=== PATIENT | female | born 1965 | race Caucasian/White ===

== ENCOUNTER 2017-09-11 15:29 | Outpatient (CLI) | payer OTHER | END 2017-09-11 15:30 | disposition home or self-care (01) | LOC: BICMAMMO 15:29 | PROVIDERS: ATTEND Internal Medicine | DX: R92.8 Other abnormal and inconclusive findings on diagnostic imaging of breast (principal) | CPT/HCPCS: 77066; G0279 ==

== ENCOUNTER 2017-12-29 12:45 | Emergency (ER) | payer OTHER ==
[~2017-12-29 12:45] MED LIST: ISOVUE-370 76%-LOCM 1 ML ONE
[2017-12-29 15:22] LABS: #Eosinphils 0.1 thou/uL (0.0-0.7); #Lymphocytes 2.1 thou/uL (1.20-3.40); #Monocytes 0.3 thou/uL (0.11-0.59); #Neutrophils 2.8 thou/uL (1.40-6.50); %Basophils 0.9 % (0.0-1.0); %Eosinophils 1.9 % (0.0-10.0); %Lymphocytes 38.7 % (21.0-51.0); %Neutrophils 52.6 % (42.0-75.0); Mean Corpuscular HGB CONC 30.7 g/dL (32.0-36.0); Mean Corpuscular Hemoglobin 20.4 pg (27.0-31.0); Mean Corpuscular Volume 66.6 fl (81.0-99.0); Mean Platelet Volume 7.9 fL (7.4-10.4); Platelet Count 534 thou/uL (130-400); RBC Distribution Width 16.9 % (11.5-14.5); Red Blood Cell (RBC) Count 4.89 mill/uL (4.20-5.40); White Blood Cell (WBC) Count 5.4 thou/uL (4.8-10.8)
[2017-12-29 15:37] LABS: ALT (SGPT) 51 U/L (8-55); AST (SGOT) 40 U/L (5-34); Albumin 4.2 g/dL (3.5-5.0); Alkaline Phosphatase 293 U/L (40-150); Anion Gap 11 mmol/L (10-20); BUN (Urea Nitrogen) 15 mg/dL (9.8-20.1); Bilirubin, Total 0.3 mg/dL (0.2-1.2); Calc. Creatinine Clearance 0 mL/min (70-130); Calcium 9.1 mg/dL (7.8-10.44); Carbon Dioxide 25 mmol/L (22-29); Chloride 105 mmol/L (98-107); Estimated GFR-MDRD Greater than 90; Glucose 96 mg/dL (70-105); Potassium 3.4 mmol/L (3.5-5.1); Protein, Total 8.2 g/dL (6.0-8.3); Sodium 138 mmol/L (136-145)
[2017-12-29 15:41] LABS: Anisocytosis SLIGHT = 6-15 cells (100X) (0-5/hpf); Hypochromia SLIGHT = 6-15 cells (100X) (0-5/hpf); MDiff Complete? YES; Ovalocytes SLIGHT = 2-5 cells (100X) (0-1/hpf); PLT Morphology Comment Appears Increased; Polychromasia SLIGHT = 2-3 cells (100X) (0-2/hpf); Target Cells SLIGHT = 2-5 cells (100X) (0-1/hpf)
[2017-12-29] MEDS ORDERED: Ondansetron ODT 4 MG TAB ONE (16:07)
[2017-12-29 17:00] LABS: Bilirubin Small (Negative); Blood, Urine Negative (Negative); Clarity CLOUDY (Clear); Glucose, Urine (Dipstick) Negative (Negative); Leukocyte Negative (Negative); Nitrite Negative (Negative); Protein, Urine (Dipstick) 30 mg/dL (Neg-Trace)
[2017-12-29 17:01] LABS: Bacteria/HPF None Seen HPF (None Seen); Pathc Cast-AUWi Flag 1.45 (0-2.49); RBC/HPF 0-3 HPF (0-3)
[2017-12-29 17:10] LABS: Hyaline Casts/LPF 0-3 HYALINE CAST LPF (0-3 Hyaline)
--- NOTE | 2017-12-29 20:24 | CT ---
CT ABDOMEN AND PELVIS: 12/29/2017 HISTORY: Nausea, vomiting, diarrhea, and pain. COMPARISON: None. TECHNIQUE: Serial axial CT imaging at 5 mm intervals, from the lung bases through the pubic symphysis, with IV c ontrast. Coronal reformatted imaging obtained. FINDINGS: The imaged lung bases demonstrate mild linear density, suggesting volume loss. No free intraperitone al air or fluid is seen. The liver, gallbladder, spleen, pancreas, adrenal glands, and kidneys are unremarkable. The uterus is lobulated, particularly the region of the uterine fundus, suggesting a fibroid uterus. There is diverticulosis of the sigmoid colon, with no evidence for diverticulitis. The appendix appears unremarkable. There is no evidence for large or small bowel obstruction. There is mild scattered atherosclerotic calcification of the abdominal aorta. No adenopathy is noted within the abdomen or pelvis. There is a small, fat-containing umbilical grace ia. Osseous structures demonstrate no acute findings. IMPRESSION: Fibroid uterus. No free intraperitoneal air, evidence of focal bowel inflammatory change, or evidenc e of bowel obstruction. POS: THOMAS
== END 2017-12-29 20:53 | disposition home or self-care (01) ==
LOC: ERS 12:45
DX: R11.2 Nausea with vomiting, unspecified (principal); R19.7 Diarrhea, unspecified; D64.9 Anemia, unspecified; J45.909 Unspecified asthma, uncomplicated; K21.9 Gastro-esophageal reflux disease without esophagitis; Z79.899 Other long term (current) drug therapy
CPT/HCPCS: 36415; 74177; 80053; 81003; 81015; 83690; 85025; 96360; 96361; Q0162

== ENCOUNTER 2018-02-26 06:44 | Outpatient (CLI) | payer OTHER | END 2018-02-26 06:45 | disposition home or self-care (01) | LOC: BICULT 06:44 | PROVIDERS: ATTEND Family Medicine | DX: R94.5 Abnormal results of liver function studies (principal); K82.4 Cholesterolosis of gallbladder | CPT/HCPCS: 76705 ==

== ENCOUNTER 2018-12-10 09:02 | Outpatient (CLI) | payer OTHER ==
--- NOTE | 2018-12-10 09:38 | MMO ---
Bilateral MAMMO Bilat Screen [facility]. CLINICAL HISTORY: Patient is 53 years old and is seen for screening. The patient has no family history of breast cancer. The patient has no personal history of cancer. The patient has a history of right Ultrasound Guided Core Biopsy in December, - benign. VIEWS: The views performed were: bilateral craniocaudal with tomosynthesis and bilateral mediolateral oblique with tomosynthesis. FILMS COMPARED: The present examination has been compared to prior imaging studies performed at [facility] on 07/27/2015, 12/27/2015, 08/09/2016 and 09/11/2017. MAMMOGRAM FINDINGS: The breasts are heterogeneously dense, which could obscure a lesion on mammography. Finding 1: There are stable benign appearing calcifications seen in the right breast. Finding 2: There is a biopsy clip seen in the right breast. There are no suspicious masses, suspicious calcifications, or new areas of architectural distortion. IMPRESSION: THERE IS NO MAMMOGRAPHIC EVIDENCE OF MALIGNANCY. A ROUTINE FOLLOW-UP MAMMOGRAM IN 1 YEAR IS RECOMMENDED. THE RESULTS OF THIS EXAM WERE SENT TO THE PATIENT. ACR BI-RADS Category 2 - Benign finding MAMMOGRAPHY NOTE: 1. A negative mammogram report should not delay a biopsy if a dominant of clinically suspicious mass is present. 2. Approximately 10% to 15% of breast cancers are not detected by mammography. 3. Adenosis and dense breasts may obscure an underlying neoplasm.
== END 2018-12-10 09:03 | disposition home or self-care (01) ==
LOC: BICMAMMO 09:02
PROVIDERS: ATTEND Internal Medicine
DX: Z12.31 Encounter for screening mammogram for malignant neoplasm of breast (principal)
CPT/HCPCS: 77063; 77067

== ENCOUNTER 2021-12-29 07:50 | Outpatient (CLI) | payer OTHER | END 2021-12-29 07:51 | disposition home or self-care (01) | LOC: BICULT 07:50 | PROVIDERS: ATTEND Nurse Practitioner Family | DX: R74.8 Abnormal levels of other serum enzymes (principal); K82.4 Cholesterolosis of gallbladder | CPT/HCPCS: 76705 ==

== ENCOUNTER 2022-09-22 12:45 | Inpatient (IN) | payer SELFPAY ==
[2022-09-22] MEDS ORDERED: Aspirin Chewable 81 MG TAB ONE (13:02)
[2022-09-22 13:27] LABS: #Basophils 0.1 thou/uL (0.0-0.2); #Eosinphils 0.1 thou/uL (0.0-0.7); #Lymphocytes 1.7 thou/uL (1.20-3.40); #Monocytes 0.4 thou/uL (0.11-0.59); #Neutrophils 3.3 thou/uL (1.40-6.50); %Basophils 1.2 % (0.0-1.0); %Eosinophils 2.5 % (0.0-10.0); %Lymphocytes 30.2 % (21.0-51.0); %Monocytes 6.7 % (0.0-10.0); %Neutrophils 59.4 % (42.0-75.0); Hemoglobin 13.5 g/dL (12.0-16.0); Mean Corpuscular HGB CONC 34.8 g/dL (32.0-36.0); Mean Corpuscular Hemoglobin 33.4 pg (27.0-31.0); Mean Corpuscular Volume 95.9 fl (78.0-98.0); Mean Platelet Volume 7.5 fL (7.4-10.4); Platelet Count 288 10x3/uL (130-400); Red Blood Cell (RBC) Count 4.04 mill/uL (4.20-5.40); White Blood Cell (WBC) Count 5.5 10x3/uL (4.8-10.8)
[2022-09-22 13:46] LABS: ALT (SGPT) 129 U/L (8-55); AST (SGOT) 97 U/L (5-34); Albumin 3.7 g/dL (3.5-5.0); Alkaline Phosphatase 503 U/L (40-110); Anion Gap 13 mmol/L (10-20); BUN (Urea Nitrogen) 15 mg/dL (9.8-20.1); Bilirubin, Total 0.3 mg/dL (0.2-1.2); Calc. Creatinine Clearance 0 mL/min (70-130); Calcium 8.6 mg/dL (7.8-10.44); Carbon Dioxide 22 mmol/L (22-29); Chloride 107 mmol/L (98-107); Estimated GFR 99; Globulin 3.8 g/dL (2.4-3.5); Glucose 105 mg/dL (70-105); Lipase 52 U/L (8-78); Potassium 3.7 mmol/L (3.5-5.1); Protein, Total 7.5 g/dL (6.0-8.3); Sodium 138 mmol/L (136-145)
[2022-09-22] MEDS ORDERED: Nitroglycerin 0.4 MG TAB (25 Tab Bottle) SL PRN (14:36)
[2022-09-22 15:04] VITALS: BMI 35.4
[2022-09-22 17:01] LABS: Troponin I 0.011 ng/mL (< 0.028)
[2022-09-22 20:12] LABS: Troponin I Less than 0.010 ng/mL (< 0.028)
[2022-09-23 05:44] LABS: #Basophils 0.1 thou/uL (0.0-0.2); #Eosinphils 0.1 thou/uL (0.0-0.7); #Lymphocytes 1.8 thou/uL (1.20-3.40); #Monocytes 0.3 thou/uL (0.11-0.59); %Basophils 0.9 % (0.0-1.0); %Eosinophils 2.8 % (0.0-10.0); %Lymphocytes 33.6 % (21.0-51.0); %Monocytes 6.3 % (0.0-10.0); %Neutrophils 56.4 % (42.0-75.0); Hemoglobin 13.7 g/dL (12.0-16.0); Mean Corpuscular HGB CONC 33.8 g/dL (32.0-36.0); Mean Corpuscular Hemoglobin 32.4 pg (27.0-31.0); Mean Corpuscular Volume 95.9 fl (78.0-98.0); Mean Platelet Volume 7.5 fL (7.4-10.4); Platelet Count 266 10x3/uL (130-400); RBC Distribution Width 12.1 % (11.5-14.5); Red Blood Cell (RBC) Count 4.22 mill/uL (4.20-5.40); White Blood Cell (WBC) Count 5.4 10x3/uL (4.8-10.8)
[2022-09-23 06:01] LABS: Anion Gap 12 mmol/L (10-20); BUN (Urea Nitrogen) 14 mg/dL (9.8-20.1); Calc. Creatinine Clearance 147 mL/min (70-130); Calcium 8.7 mg/dL (7.8-10.44); Carbon Dioxide 23 mmol/L (22-29); Cardiac Risk 2.3 (Less than 4.5); Chloride 107 mmol/L (98-107); Cholesterol 168 mg/dl (< 200 Desired); Estimated GFR 107; Glucose 97 mg/dL (70-105); HDL Cholesterol 73 mg/dL (>60 Neg Risk); LDL Cholesterol, Calculated 76 mg/dL; Potassium 3.6 mmol/L (3.5-5.1); Sodium 138 mmol/L (136-145); Triglycerides 94 mg/dL (Less than 150)
[2022-09-23] MEDS ORDERED: ADENOSINE 60 MG/20 ML VIAL ONE (09:55)
[2022-09-23] MEDS: Lisinopril 10 MG TAB PO SCH (12:13)
[2022-09-23] MEDS: Aspirin Chewable 81 MG TAB PO SCH (12:13)
[2022-09-24] MEDS: Aspirin Chewable 81 MG TAB PO SCH (09:01)
[2022-09-24] MEDS: Lisinopril 10 MG TAB PO SCH (09:01)
[2022-09-25 01:24] LABS: Hemoglobin A1c 5.3 % (4.0-6.0)
[2022-09-25 05:37] LABS: #Eosinphils 0.1 thou/uL (0.0-0.7); #Lymphocytes 1.8 thou/uL (1.20-3.40); #Monocytes 0.4 thou/uL (0.11-0.59); #Neutrophils 3.8 thou/uL (1.40-6.50); %Basophils 0.7 % (0.0-1.0); %Monocytes 6.5 % (0.0-10.0); %Neutrophils 61.9 % (42.0-75.0); Hemoglobin 14.4 g/dL (12.0-16.0); Mean Corpuscular Hemoglobin 32.6 pg (27.0-31.0); Mean Corpuscular Volume 95.8 fl (78.0-98.0); Mean Platelet Volume 7.5 fL (7.4-10.4); Platelet Count 288 10x3/uL (130-400); RBC Distribution Width 12.1 % (11.5-14.5); White Blood Cell (WBC) Count 6.2 10x3/uL (4.8-10.8)
[2022-09-25 05:59] LABS: Anion Gap 13 mmol/L (10-20); BUN (Urea Nitrogen) 15 mg/dL (9.8-20.1); Calc. Creatinine Clearance 142 mL/min (70-130); Calcium 9.1 mg/dL (7.8-10.44); Carbon Dioxide 22 mmol/L (22-29); Chloride 105 mmol/L (98-107); Estimated GFR 106; Glucose 109 mg/dL (70-105); Potassium 3.8 mmol/L (3.5-5.1); Sodium 136 mmol/L (136-145)
[2022-09-25 08:49] VITALS: BP 109/58; TEMP 97.9
[2022-09-25] MEDS ORDERED: Atorvastatin Calcium 20 MG TAB PO SCH (09:00)
[2022-09-25] MEDS: Lisinopril 10 MG TAB PO SCH (09:08)
[2022-09-25] MEDS: Aspirin Chewable 81 MG TAB PO SCH (09:08)
== END 2022-09-25 11:20 | disposition home or self-care (01) | DRG 313 ==
LOC: ERS 12:45 → 2SW 14:21 → OBSVTOIN 09-24 09:31
PROVIDERS: ADMIT Family Medicine; ATTEND Family Medicine
DX: R07.89 Other chest pain (principal); Z20.822 Contact with and (suspected) exposure to COVID-19; E78.5 Hyperlipidemia, unspecified; K21.9 Gastro-esophageal reflux disease without esophagitis; I10 Essential (primary) hypertension; Z96.659 Presence of unspecified artificial knee joint; R20.0 Anesthesia of skin; M19.012 Primary osteoarthritis, left shoulder; K76.0 Fatty (change of) liver, not elsewhere classified; Z98.51 Tubal ligation status; Z79.899 Other long term (current) drug therapy
CPT/HCPCS: 36415; 70551; 71045; 72141; 76705; 78452; 80048; 80053; 80061; 83036; 83690; 83735; 84443; 84484; 85025; 93005; 93017; 93306; 93880; 94760; A9500; G0378; J0153; U0003; U0005

== ENCOUNTER 2025-02-10 12:36 | Outpatient (CLI) | payer OTHER | END 2025-02-10 12:37 | disposition home or self-care (01) | LOC: BICMAMMO 12:36 | PROVIDERS: ATTEND Nurse Practitioner Family | DX: Z12.31 Encounter for screening mammogram for malignant neoplasm of breast (principal); Z91.89 Other specified personal risk factors, not elsewhere classified | CPT/HCPCS: 77063; 77067 ==